=== PATIENT | female | born 1950 | race African-American/Black ===

== ENCOUNTER 2023-08-27 10:45 | Emergency (ER) | payer OTHER ==
[~2023-08-27] VITALS: Ht 167.6 cm; Wt 80.0 kg
[2023-08-27 10:48] VITALS: O2SAT 99
[2023-08-27 11:32] VITALS: BP 125/76; PULSE 88; RESP 18; TEMP 98.1
[2023-08-27 11:48] LABS: BASOPHILS % 0.4 % (0.0-2.0); EOSINOPHILS % 4.1 % (0.0-5.0); HEMATOCRIT. 32.6 % (36.0-48.0); HEMOGLOBIN. 10.1 g/dL (12.0-16.0); LYMPHOCYTES % 44.2 % (20.0-50.0); MEAN CORPUSCULAR HEMOGLOBIN 28.5 pg (28.0-32.0); MEAN CORPUSCULAR VOLUME 91.8 fL (81.0-99.0); MEAN PLATELET VOLUME 9.1 fl (7.4-10.4); MONOCYTES % 5.3 % (2.0-8.0); PLATELET 132 x1000/uL (130-400); RED BLOOD CELL COUNT 3.56 mill/uL (4.2-5.4); RED CELL DISTRIBUTION WIDTH 18.6 % (11.6-14.6); WHITE BLOOD COUNT 3.2 x1000/uL (4.5-11.0)
[2023-08-27 12:02] LABS: CHLORIDE 107 mEq/L (98-107); INR 1.2; PARTIAL THROMBOPLASTIN TIME 25.9 sec (23.4-31.0); POTASSIUM 3.3 mEq/L (3.5-5.1); SODIUM 140 mEq/L (136-145)
[2023-08-27 12:03] LABS: CALCIUM 8.6 mg/dL (8.7-10.4); CARBON DIOXIDE 24 mEq/L (21-32)
[2023-08-27 12:08] LABS: CREATININE 1.3 mg/dL (0.6-1.0); GLUCOSE 79 mg/dL (70-105)
[2023-08-27 12:09] LABS: UREA NITROGEN BLOOD 13 mg/dL (9-23)
[2023-08-27 12:10] LABS: ALANINE AMINOTRANSFERASE 9 IU/L (10-49); ALBUMIN 3.7 g/dL (3.2-4.8); ASPARTATE AMINOTRANSFERASE 15 IU/L (<34)
[2023-08-27 12:11] LABS: BILIRUBIN TOTAL 0.5 mg/dL (0.1-1.0); PROTEIN TOTAL 7.9 g/dL (6.0-8.3); TROPONIN I HIGH SENSITIVITY 18 ng/L (3.0-34)
== END 2023-08-27 13:30 | disposition left against medical advice (07) ==
LOC: ER 10:45
DX: R07.9 Chest pain, unspecified (principal); J45.909 Unspecified asthma, uncomplicated; I50.9 Heart failure, unspecified; I11.0 Hypertensive heart disease with heart failure; Z86.73 Personal history of transient ischemic attack (TIA), and cerebral infarction without residual deficits; Z88.0 Allergy status to penicillin; Z88.8 Allergy status to other drugs, medicaments and biological substances
CPT/HCPCS: 36415; 71045; 80053; 83880; 84484; 85025; 93005; 99285